=== PATIENT | female | born 1985 | race Caucasian/White ===

== ENCOUNTER 2017-04-03 19:59 | Emergency (ER) | payer OTHER ==
[~2017-04-03] VITALS: Ht 160 cm; Wt 58.0 kg
[2017-04-03 20:10] VITALS: Ht 160 cm; Wt 58.0 kg
[2017-04-03] MEDS ORDERED: SOD CHLORIDE 0.9% 1,000 ML IV STA (20:34)
[2017-04-03 20:53] LABS: BASOPHIL # 0.1 10^3/ul (0.0-0.1); BASOPHILS % 0.9 % (0.0-2.0); EOSINOPHILS # 0.2 10^3/ul (0.0-0.5); HEMATOCRIT 36.4 % (37.0-47.0); HEMOGLOBIN 12.2 g/dl (12.0-16.0); LYMPHOCYTES # 2.8 10^3/ul (0.8-2.9); LYMPHOCYTES % 48.3 % (15.0-51.0); MEAN CORPUSCULAR HEMOGLOBIN 32.2 pg (29.0-33.0); MEAN CORPUSCULAR HGB CONC 33.5 g/dl (32.0-37.0); MEAN PLATELET VOLUME 9.8 fl (7.4-10.4); MONOCYTE # 0.4 10^3/ul (0.3-0.9); MONOCYTES % 6.7 % (0.0-11.0); NEUTROPHIL # 2.3 10^3/ul (1.6-7.5); NEUTROPHILS % 39.9 % (39.0-77.0); PLATELET COUNT 168 10^3/UL (140-415); RED BLOOD COUNT 3.79 10^6/ul (4.20-5.40); RED CELL DISTRIBUTION WIDTH 12.3 % (11.5-14.5); WHITE BLOOD COUNT 5.8 10^3/ul (4.8-10.8)
[2017-04-03 21:08] LABS: ANION GAP 14 (8-16); BLOOD UREA NITROGEN 13 mg/dl (7-20); CALCIUM 9.2 mg/dl (8.4-10.2); CARBON DIOXIDE 25 mmol/L (21-31); CHLORIDE 106 mmol/L (97-110); CREATININE 0.71 mg/dl (0.44-1.00); GLUCOSE 91 mg/dl (70-220); POTASSIUM 3.4 mmol/L (3.5-5.1); SODIUM 142 mmol/L (135-144)
[2017-04-03 21:27] LABS: TROPONIN-I < 0.012 ng/ml (0.00-0.12)
[2017-04-03 22:44] VITALS: TEMP 98.3
[2017-04-03] MEDS ORDERED: ONDANSETRON 4 MG INJ IV ONE (22:48)
[2017-04-03 22:49] LABS: ADD UMIC NO; UR ASCORBIC ACID NEGATIVE (NEGATIVE); UR BILIRUBIN (Dip) NEGATIVE (NEGATIVE); UR BLOOD (Dip) NEGATIVE (NEGATIVE); UR CLARITY CLEAR (CLEAR); UR COLOR YELLOW (YELLOW); UR GLUCOSE (Dip) NEGATIVE (NEGATIVE); UR KETONES (Dip) TRACE mg/dL (NEGATIVE); UR LEUKOCYTE ESTERASE (Dip) NEGATIVE Leu/ul (NEGATIVE); UR NITRITE (Dip) NEGATIVE (NEGATIVE); UR SPECIFIC GRAVITY (Dip) 1.021 (1.003-1.030); UR TOTAL PROTEIN (Dip) NEGATIVE (NEGATIVE); UR UROBILINOGEN (Dip) NEGATIVE (NEGATIVE)
[2017-04-03] MEDS ORDERED: SOD CHLORIDE 0.9% 1,000 ML IV ONE (23:00)
--- NOTE | 2017-04-03 23:05 | RADRPT ---
PROCEDURE: CT BRAIN WITHOUT CONTRAST CLINICAL INDICATION: 31-year-old female with syncope. TECHNIQUE: The study was performed utilizing a GE [employer] VCT 64-slice CT scanner. Direct axia l sections were obtained from the foramen magnum to the vertex without the use of intravenous contra st material. Sagittal and coronal reformations were obtained. One or more the following dose reduct ion techniques were utilized: automated exposure control, adjustment of the mA and/or kV according t o patient's size and/or the use of iterative reconstruction technique. The images were viewed on a PACS workstation. CTD/vol = 45.0 mGy; Total Exam DLP = 720.2 mGy-cm. COMPARISON: None. FINDINGS: There is asymmetry within the lateral ventricles with the right side being greater than the left. T here is no evidence for mass effect or midline shift. There are no intracranial areas of abnormal a ttenuation. There is no evidence for acute intra or extra-axial blood. The bony calvarium is intact . There is minimal mucosal thickening within the partially visualized ethmoid air cells. No air-flui d levels are noted. The mastoid air cells are without significant soft tissue. IMPRESSION: 1. Asymmetric lateral ventricles otherwise the intracranial contents are unremarkable on this nonco ntrast CT scan of the brain. 2. Minimal mucosal thickening partially visualized ethmoid air cells. .Chano Tijerina MD, Date Time Electronically viewed and signed by .Chano Tijerina MD, on 04/03/2017 23:05 .Vladimir/
[2017-04-03] MEDS ORDERED: ONDA4TAB11 PO (23:11)
[2017-04-03 23:35] LABS: BARBITURATES Negative (NEGATIVE); BENZODIAZEPINES Negative (NEGATIVE); CANNABINOIDS Negative (NEGATIVE); COCAINE Negative (NEGATIVE); OPIATES Negative (NEGATIVE)
--- NOTE | 2017-04-03 23:35 | ERD ---
ER Documentation Chief Complaint Chief Complaint Pt states she became faint when she saw lights HPI 31-year-old female states that she was already feeling lightheaded and had some nausea when she was sitting down and passed out for an unknown amount of time. States that this had occurred to her in the distant past and she did gone to an emergency room and they had not found anything. States that she feels feels still feels a little lightheaded and dizzy. Denies any pain whatsoever. Denies shortness of breath, fever and chills. She has not been urinating more than usual or had any dysuria. She is otherwise healthy. No history of seizures. ROS All systems reviewed and are negative except as per history of present illness. Medications Home Meds Active Scripts Ondansetron (Zofran Odt) 4 Mg Tab.rapdis, 4 MG PO Q6, #10 Prov:KRISTEN GOMEZ DO 04/03/17 Allergies Allergies: Coded Allergies: No Known Allergy (Unverified , 04/03/17) PMhx/Soc Medical and Surgical Hx: pt denies Medical Hx, pt denies Surgical Hx Hx Alcohol Use: No Hx Substance Use: No Hx Tobacco Use: No Smoking Status: Never smoker Physical Exam Vitals Vital Signs Date Time Temp Pulse Resp B/P Pulse Ox O2 Delivery O2 Flow Rate FiO2 04/03/17 22:44 98.3 62 16 105/64 100 04/03/17 20:10 98.3 55 16 103/67 100 Physical Exam Const: [] No distress Head: Atraumatic Eyes: Normal Conjunctiva ENT: Normal External Ears, Nose and Mouth. Neck: Full range of motion..~ No meningismus. Resp: Clear to auscultation bilaterally Cardio: Regular rate and rhythm, no murmurs Abd: Soft, non tender, non distended. Normal bowel sounds Skin: No petechiae or rashes Back: No midline or flank tenderness Ext: No cyanosis, or edema Neur: Awake and alert Psych: Normal Mood and Affect Result Diagram: 04/03/17202404/03/172024 Results 24 hrs Laboratory Tests Test 04/03/17 20:25 04/03/17 22:11 White Blood Count 5.810^3/ul Red Blood Count 3.7910^6/ul Hemoglobin 12.2g/dl Hematocrit 36.4% Mean Corpuscular Volume 96.0fl Mean Corpuscular Hemoglobin 32.2pg Mean Corpuscular Hemoglobin Concent 33.5g/dl Red Cell Distribution Width 12.3% Platelet Count 57486^3/UL Mean Platelet Volume 9.8fl Neutrophils % 39.9% Lymphocytes % 48.3% Monocytes % 6.7% Eosinophils % 4.0% Basophils % 0.9% Nucleated Red Blood Cells % 0.0/100WBC Neutrophils # 2.310^3/ul Lymphocytes # 2.810^3/ul Monocytes # 0.410^3/ul Eosinophils # 0.210^3/ul Basophils # 0.110^3/ul Nucleated Red Blood Cells # 0.010^3/ul Sodium Level 142mmol/L Potassium Level 3.4mmol/L Chloride Level 106mmol/L Carbon Dioxide Level 25mmol/L Anion Gap 14 Blood Urea Nitrogen 13mg/dl Creatinine 0.71mg/dl Glucose Level 91mg/dl Calcium Level 9.2mg/dl Troponin I < 0.012ng/ml Thyroid Stimulating Hormone (TSH) 2.370MIU/L Urine Color YELLOW Urine Clarity CLEAR Urine pH 5.0 Urine Specific [place] 1.021 Urine Ketones TRACEmg/dL Urine Nitrite NEGATIVEmg/dL Urine Bilirubin NEGATIVEmg/dL Urine Urobilinogen NEGATIVEmg/dL Urine Leukocyte Esterase NEGATIVELeu/ul Urine Hemoglobin NEGATIVEmg/dL Urine Glucose NEGATIVEmg/dL Urine Total Protein NEGATIVEmg/dl Current Medications Medications (Trade) Dose Ordered Sig/Yasmin Route PRN Reason Start Time Stop Time Status Last Admin Dose Admin Sodium Chloride 1,000 ml @ 1,000 mls/hr Q1H STAT IV 04/03/17 20:34 04/03/17 21:33 DC 04/03/17 20:50 Sodium Chloride (NS) 1,000 ml @ 1,000 mls/hr Q1H ONCE IV 04/03/17 23:00 04/03/17 23:59 04/03/17 23:02 Ondansetron HCl (Zofran Inj) 4 mg ONCE ONCE IV 04/03/17 22:48 04/03/17 22:49 DC 04/03/17 23:02 Procedures/[facility] Young healthy adult female with syncopal episode with no trauma. She has complete negative workup with no signs for infection, , cerebrovascular accident. She was given 2 L of normal saline and Zofran after which she felt much better and was laughing at the bedside. She has asymmetrical ventricles which is a normal variant seen on CT otherwise normal scan. #1 monitor for over 2 hours with no signs of arrhythmia. I am going to discharge her with Zofran ODT tabs and instructions see her primary care doctor and return to emergency room immediately if she has any concerning symptoms. EKG interpretation: Sinus bradycardia rate of 50, normal axis, no ST or T-wave changes concerning for acute ischemia, normal intervals. melt helper interpretation: Mild sinus bradycardia and normal sinus rhythm with no other arrhythmia. CT brain interpretation: Asymmetrical ventricles with no acute process. I see no hemorrhage, no mass-effect or midline shift, no skull fracture. Departure Diagnosis: Primary Impression: Syncope Additional Impression: Nausea Condition: Stable Patient Instructions: Syncope, Unk Cause Referrals: [facility] YOU HAVE RECEIVED A MEDICAL SCREENING EXAM AND THE RESULTS INDICATE THAT YOU DO NOT HAVE A CONDITION THAT REQUIRES URGENT TREATMENT IN THE EMERGENCY DEPARTMENT. FURTHER EVALUATION AND TREATMENT OF YOUR CONDITION CAN WAIT UNTIL YOU ARE SEEN IN YOUR DOCTORS OFFICE WITHIN THE NEXT 1-2 DAYS. IT IS YOUR RESPONSIBILITY TO MAKE AN APPOINTMENT FOR FOLOW-UP CARE. IF YOU HAVE A PRIMARY DOCTOR --you should call your primary doctor and schedule an appointment IF YOU DO NOT HAVE A PRIMARY DOCTOR YOU CAN CALL OUR PHYSICIAN REFERRAL HOTLINE AT IF YOU CAN NOT AFFORD TO SEE A PHYSICIAN YOU CAN CHOSE FROM THE FOLLOWING [facility] [address] [facility] [place]. [facility] [address] [facility] [place] [address] [facility] [facility] [address] [facility]. [facility] [address] [facility]. [facility]. [address] Additional Instructions: Call your primary care doctor TOMORROW for an appointment during the next 2-3 days.See the doctor sooner or return here if your condition worsens before your appointment time. KRISTEN GOMEZ DO Apr 03, 2017 23:34
[2017-04-04 00:28] VITALS: BP 100/60; PULSE 60; RESP 16
[2017-04-04] MEDS ORDERED: MECLIZINE 12.5 MG TAB PO ONE (00:30)
== END 2017-04-04 00:29 | disposition home or self-care (01) ==
LOC: E/R 19:59
DX: R55 Syncope and collapse (principal); R11.0 Nausea
CPT/HCPCS: 36415; 70450; 80048; 80307; 81003; 84443; 84484; 85025; 93005; 96374; J2405; J7030; Z7502; Z7610